=== PATIENT | female | born 1950 | race Caucasian/White ===

== ENCOUNTER → 2020-07-05 | Day surgery (SDC) | payer MEDICARE ==
[~2020-07-05] MED LIST: BC POWDER PACK1 EACH PO; INHALER INH; LISINOPRIL20 MG PO; VITAMIN D3125 MCG PO
== END | disposition home or self-care (01) ==
LOC: OR 06:27
DX: D12.5 Benign neoplasm of sigmoid colon (principal); I10 Essential (primary) hypertension; J44.9 Chronic obstructive pulmonary disease, unspecified; E11.9 Type 2 diabetes mellitus without complications; F17.219 Nicotine dependence, cigarettes, with unspecified nicotine-induced disorders; Z88.5 Allergy status to narcotic agent; Z80.0 Family history of malignant neoplasm of digestive organs
CPT/HCPCS: J2704; J7120

== ENCOUNTER 2021-07-18 11:01 | Inpatient (IN) | payer MEDICARE ==
[~2021-07-18] VITALS: Ht 157.5 cm; Wt 51.3 kg
[2021-07-18 11:48] LABS: HEMOGLOBIN 13.4 gm/dl (12.3-15.3); RED BLOOD COUNT 4.18 M/UL (4.00-5.10); WHITE BLOOD COUNT 10.4 K/UL (4.5-11.0)
[2021-07-18] MEDS ORDERED: LISINOPRIL20 MG PO (17:40)
[2021-07-18] MEDS ORDERED: TRAMADOL HCL50 MG PO (17:41)
[2021-07-18] MEDS ORDERED: VENLAFAXINE HC150 MG PO (17:45)
[2021-07-18] MEDS ORDERED: VITAMIN D21250 MCG PO (17:46)
[2021-07-18] MEDS ORDERED: CRESTOR5 MG PO (17:47)
[2021-07-18] MEDS ORDERED: BUDESONIDE-FO10.2 G1 INH (17:49)
[2021-07-18] MEDS ORDERED: BC POWDER PACK1 EACH PO (17:50)
[2021-07-19 01:24] LABS: WHITE BLOOD COUNT 8.8 K/UL (4.5-11.0)
[2021-07-19 01:29] LABS: RED BLOOD COUNT 3.76 M/UL (4.00-5.10)
== END 2021-07-19 08:53 | disposition short-term general hospital (02) | DRG 280 ==
LOC: ER1 11:01 → CDU 14:14 → PROG CARE 17:49
PROVIDERS: Family Medicine; Physician Assistant Medical; ADMIT Internal Medicine
PROC: 4A023N7 Measurement of Cardiac Sampling and Pressure, Left Heart, Percutaneous Approach (ICD-10-PCS; principal; 2021-07-18)
PROC: B2111ZZ Fluoroscopy of Multiple Coronary Arteries using Low Osmolar Contrast (ICD-10-PCS; 2021-07-18)
PROC: B24BZZZ Ultrasonography of Heart with Aorta (ICD-10-PCS; 2021-07-18)
DX: I21.09 ST elevation (STEMI) myocardial infarction involving other coronary artery of anterior wall (principal); J96.01 Acute respiratory failure with hypoxia; J98.11 Atelectasis; N17.9 Acute kidney failure, unspecified; I11.0 Hypertensive heart disease with heart failure; I50.9 Heart failure, unspecified; Z20.822 Contact with and (suspected) exposure to COVID-19; I71.4 Abdominal aortic aneurysm, without rupture; F41.9 Anxiety disorder, unspecified; G93.89 Other specified disorders of brain; M54.50 Low back pain, unspecified; J44.9 Chronic obstructive pulmonary disease, unspecified; M41.9 Scoliosis, unspecified; F17.200 Nicotine dependence, unspecified, uncomplicated; F17.210 Nicotine dependence, cigarettes, uncomplicated; G89.29 Other chronic pain; Z98.890 Other specified postprocedural states; Z88.5 Allergy status to narcotic agent; Z88.8 Allergy status to other drugs, medicaments and biological substances; Z82.49 Family history of ischemic heart disease and other diseases of the circulatory system; Z83.6 Family history of other diseases of the respiratory system
CPT/HCPCS: ECHO; 0240U; 36415; 36600; 71045; 80048; 80053; 82550; 82553; 82803; 83605; 83735; 83880; 84484; 85025; 85027; 85347; 85610; 85730; 93005; 93306; 94640; 94664; 94760; 99285; C1769; C1887; C1894; J1644; J1940; J2250; J2920; J3010; J7040; Q9965